=== PATIENT | female | born 1975 | race Caucasian/White ===

== ENCOUNTER → 2019-07-25 | Outpatient (CLI) | payer BC ==
--- NOTE | 2019-07-25 12:25 | CARD ---
MR#: [id number] Date of Study: 07/25/2019 Ordering Physician: SHANTE EUGENE, Referring Physician: SHANTE EUGENE, Tech: Sherri Camacho ILYA APPROVED REPORT EXAM: Two-dimensional and M-mode echocardiogram with Doppler and color Doppler. Other Information Quality : AverageHR: 85bpm Rhythm : NSR INDICATION Murmur RISK FACTORS Smoking 20 year smoking history 2D DIMENSIONS RVDd3.2 (2.9-3.5cm)IVSd1.0 (0.7-1.1cm) Aortic Root(2D)2.7 (2.0-3.7cm)LVDd3.7 (3.9-5.9cm) LVOT Diameter1.9 (1.8-2.4cm)PWd1.0 (0.7-1.1cm) LVDs2.6 (2.5-4.0cm)FS (%) 29.0 % SV32.1 mlLVEF(%)56.6 (>50%) Aortic Valve AoV Peak Ramakrishna.142.2cm/Alexi Peak GR.8.1mmHg LVOT Peak Ramakrishna.129.9cm/sAVA (VMAX)2.66cm2 Mitral Valve MV E Eozzgonx71.5cm/sMV DECEL [id number] MV A Auwzuvnh21.0cm/sE/A Ratio1.8 MV A [id number] Pulmonary Valve PV Peak Pqyswhni32.5cm/s Pulmonary Vein S1 Wtvhnwmz83.9cm/sD2 Obrvobzp96.9cm/s PVa [id number] LEFT VENTRICLE The left ventricle is normal size. There is normal left ventricular wall thickness. The left ventricu lar systolic function is normal and the ejection fraction is within normal range. EF 55% There is nor mal LV segmental wall motion. The left ventricular diastolic function and filling is normal for age. There is no ventricular septal defect visualized. RIGHT VENTRICLE The right ventricle is normal size. The right ventricular systolic function is normal. ATRIA The left atrium size is normal. The right atrium size is normal. The interatrial septum is intact wit h no evidence for an atrial septal defect or patent foramen ovale as noted on 2-D or Doppler imaging. AORTIC VALVE The aortic valve is not well visualized. Doppler and Color Flow revealed no significant aortic regurg itation. There is no significant aortic valvular stenosis. MITRAL VALVE The mitral valve is normal in structure and function. There is no mitral valve stenosis. Doppler and Color-flow revealed trace mitral regurgitation. TRICUSPID VALVE The tricuspid valve is normal in structure and function. Doppler and Color Flow revealed no tricuspid valve regurgitation noted. Unable to assess PA pressure. There is no tricuspid valve stenosis. PULMONIC VALVE The pulmonic valve is not well visualized. Doppler and Color Flow revealed no pulmonic valvular regur gitation. There is no pulmonic valvular stenosis. GREAT VESSELS The aortic root is normal in size. The ascending aorta is normal in size. The IVC is normal in size a nd collapses >50% with inspiration. PERICARDIAL EFFUSION There is no evidence of significant pericardial effusion. Critical Notification Critical Value: No <Conclusion> The left ventricular systolic function is normal and the ejection fraction is within normal range. EF 55% There is normal LV segmental wall motion. Signed by : Miguel Hernández, Electronically Approved : 07/25/2019 12:25:26
== END | disposition home or self-care (01) ==
LOC: ECHO 08:55 → MERGE 09:00
PROVIDERS: ATTEND Physician Assistant Medical
DX: R01.1 Cardiac murmur, unspecified (principal)
CPT/HCPCS: 93306